=== PATIENT | female | born 1945 | race Caucasian/White ===

== ENCOUNTER 2024-01-16 21:44 | Emergency (ER) | payer MEDICARE, SELFPAY ==
[2024-01-16] VITALS (7 sets, daily range): BP systolic 157–191; BP diastolic 71–132; BMI 26.4
[2024-01-16 22:32] LABS: % Basophils 0.9 % (0-2); % Eosinophils 1.6 % (0-6); % Immature Granulocytes 0.5 % (0-0.5); % Lymphocytes 12.8 % (20.5-51.1); % Neutrophils 76.2 % (42.2-75.2); Absolute Basophils 0.1 10^3/uL (0-0.2); Absolute Eosinophils 0.2 10^3/uL (0-0.7); Absolute Immature Granulocytes 0.1 10^3/uL (0-0.05); Absolute Lymphocytes 1.6 10^3/uL (1.2-3.4); Absolute Neutrophils 9.6 10^3/uL (1.4-6.5); Hematocrit 31.9 % (37.0-47.0); Hemoglobin 10.5 g/dL (12.0-16.0); Mean Corp Hgb Conc. 32.9 g/dL (33.0-37.0); Mean Corpuscular Hgb 29.5 pg (27.0-31.0); Mean Corpuscular Volume 89.6 fL (81.0-99.0); Mean Platelet Volume 9.2 fL (7.4-10.4); Nucleated Red Blood Cells % 0 %; Platelet Count 399 10^3/uL (130-400); Red Blood Cell Count 3.56 10^6/uL (4.20-5.40); White Blood Cell Count 12.6 10^3/uL (4.8-10.8)
[2024-01-16 23:01] LABS: ALT (SGPT) 23 U/L (0-35); AST (SGOT) 37 U/L (14-36); Albumin 4.1 g/dl (3.5-5.0); Alkaline Phosphatase 146 U/L (38-126); Blood Urea Nitrogen 42 mg/dl (7-17); Calcium 11.2 mg/dl (8.4-10.2); Carbon Dioxide 20 mmol/L (22-30); Chloride 104 mmol/L (98-107); Estimated Creatinine Clearance 31 ml/min; Glucose 109 mg/dl (70-99); Magnesium 2.3 mg/dl (1.6-2.3); Potassium 4.9 mmol/L (3.5-5.1); Sodium 139 mmol/L (135-145); Total Bilirubin 0.6 mg/dl (0.2-1.3); Total Protein 7.7 g/dl (6.3-8.2); eGFR 45.76
[2024-01-16] MEDS: NSS 1000 IV (23:12)
--- NOTE | 2024-01-16 23:22 | ED.GENMED ---
Addendum entered and electronically signed by ALEX Araujo 01/20/24 10:32:
Urine cx + E coli spoke with patient at home. She does report she is urinating more frequently but denies any burning with urination. Denies any abdominal pain nausea vomiting back pain. Will DC with Keflex 500 mg twice daily discussed with
patient to follow-up with PCP for repeat UA and reevaluation by PCP. She is to return if any worsening of symptoms.
Original Note:
History of Present Illness
General
Chief Complaint: Heart Rate Problem
Source: patient and records
Exam Limitations: none
Time Seen by Provider: 01/16/24 23:00
Nursing documentation reviewed up to this point in time: agreed with
History of Present Illness
History of Present Illness:
78-year-old female with past medical history of atrial fibrillation on Eliquis, CHF, hypertension, mitral regurgitation status post bioprosthetic mitral valve replacement and tricuspid repair, CKD, asthma who presents to the emergency department for
evaluation of palpitations and tachycardia, fatigue. Patient reports that symptoms have been ongoing for the past 2 or 3 weeks but over the past few days have been much worse she says in the setting of significant stress as well as a flare of her
arthritis in her hand. She says that tonight her monitor was alarming for high heart rate and so she came to the emergency to be evaluated. She says she has had this issue in the past with rapid atrial fibrillation. She denies any chest pain.
Denies any shortness of breath. She denies any dizziness or lightheadedness. She has not noticed any swelling in the legs. She denies any other complaints. In addition to palpitations and tachycardia she says that recently her blood pressures
have been running high. She says yesterday she had a mild headache but no other symptoms. She currently takes metoprolol for her atrial fibrillation and reports compliance without any missed doses or recent adjustments. She is on Eliquis 5 mg
twice daily and reports compliance without missed doses. She follows with Dr. Masterson for cardiology.
Past History
Past History
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
ED Past Surgical History: Cardiac
Patient has exhibited threatening behavior?: No
PSI?: No
Social History
Tobacco: Non-smoker
Alcohol: Daily (1-2 small glasses of wine daily)
Drug: None
Personal:
Living: with family
Employment: Retired
Family History
Family History: Other (Noncontributory)
Review of Systems
Review of Systems
All Other Systems: ROS reviewed and negative except as documented in HPI and ROS
Constitutional: Reports fatigue; Denies fever or chills
Respiratory: Denies cough or trouble breathing
Cardiac: Reports palpitations; Denies chest pain or syncope
ABD/GI: Denies abdominal pain, nausea or vomiting
: Denies flank pain
Musculoskeletal: Denies edema, neck pain or back pain
Neurological: Denies dizzy
Phy Exam
Physical Exam
Physical Exam:
General: Awake, alert, oriented x3; no acute distress
Head: Normocephalic, atraumatic
Eyes: Conjunctiva normal, sclera anicteric
Throat: Airway intact, handling secretions
Neck: Trachea midline, no JVD
Lungs: Clear to auscultation bilaterally, no wheezing, rales, rhonchi
Heart: Tachycardia with irregularly irregular rhythm, no murmurs, gallops, or rubs
Abd: Soft, non distended, nontender
Neuro: No gross deficits
Skin: no rash
Extremities: No edema in extremities, warm and well-perfused
Scores
Heart Failure Risk
Heart Failure Risk Score: Not Applicable
Heart Score for Chest Pain Patients
STEMI patient?: Not applicable
Withdrawal Assessment of Alcohol
Withdrawal Assessment Completed?: Not applicable
Course
Orders/Labs/Results
Orders:
Orders
01/16/24 21:59
Electrocardiogram (*1) Urgent
Reason for Study: Tachycardia
EKG- Treatment ONCE
01/16/24 22:25
Complete Blood Count/With Diff Urgent
Comprehensive Metabolic Panel Urgent
Magnesium Urgent
01/16/24 23:04
0.9% Sodium Chloride 1000 ml [Nss] 1,000 ml IV BOLUS
01/16/24 23:22
Diltiazem HCl [Cardizem] 10 mg IV NOW STA
01/16/24 23:30
CR Chest - 2 Views Urgent
Reason For Exam: weakness, tachycardia
01/16/24 23:44
Urinalysis Reflex To Culture Urgent
Date Specimen was Collected: 01/16/24
Time Specimen was Collected: 23:43
Urine Microscopic Reflex Cult Urgent
Urine Culture Urgent
GENNY Source: U
Specimen Description:
Date Specimen was Collected: 01/16/24
Time Specimen was Collected: 23:43
01/17/24 00:10
Diltiazem HCl [Cardizem] 10 mg IV NOW STA
Abnormal Lab Results
01/16/24 01/16/24
22:25 23:44
WBC 12.6 H 10^3/uL
(4.8-10.8)
RBC 3.56 L 10^6/uL
(4.20-5.40)
Hgb 10.5 L g/dL
(12.0-16.0)
Hct 31.9 L %
(37.0-47.0)
MCHC 32.9 L g/dL
(33.0-37.0)
Abs Immat Gran (auto) 0.1 H 10^3/uL
(0-0.05)
Absolute Neuts (auto) 9.6 H 10^3/uL
(1.4-6.5)
Absolute Monos (auto) 1.0 H 10^3/uL
(0.1-0.6)
Neutrophils % 76.2 H %
(42.2-75.2)
Lymphocytes % 12.8 L %
(20.5-51.1)
Carbon Dioxide 20 L mmol/L
(22-30)
BUN 42 H mg/dl
(7-17)
Creatinine 1.2 H mg/dL
(0.6-1.0)
Glucose 109 H mg/dl
(70-99)
Calcium 11.2 H mg/dl
(8.4-10.2)
AST 37 H U/L
(14-36)
Alkaline Phosphatase 146 H U/L
(38-126)
Ur Occult Blood Reflex 4+ A
(Negative)
Leukocyte Esterase Rfl 1+ A
(Negative)
Urine RBC 3-6 A /HPF
(0-2)
Urine WBC (Reflex) 11-15 A /HPF
(0-5)
Urine Bacteria (Reflex) Few A
(Negative)
01/16/24 22:25
01/16/24 22:25
Vital Signs
Initial and Last Documented VS:
Initial Vital Signs
Temp Pulse Resp BP Pulse Ox
36.7 C 142 18 185/132 98
01/16/24 21:54 01/16/24 21:54 01/16/24 21:54 01/16/24 21:54 01/16/24 21:54
Last Documented Vital Signs
Temp Pulse Resp BP Pulse Ox
36.7 C 80 12 183/85 97
01/16/24 21:54 01/17/24 01:20 01/17/24 01:20 01/17/24 01:20 01/17/24 01:20
MDM/Problems Addressed
Differential Diagnosis Includes:
Anemia, dehydration, electrolyte derangement, symptomatic A-fib, infection including UTI or pneumonia
MDM/Problems Addressed:
78-year-old female presents for evaluation of palpitations and fatigue similar to her normal rapid A-fib symptoms. Symptoms have been progressing over the past couple of weeks but heart rate significantly increasing recently which prompted ER visit
ryleyight. Blood pressures also been running higher than usual. Hypertensive in triage greatly improved by my assessment. She is tachycardic with labile heart rate between 100-140. EKG shows A-fib with RVR. Plan to place an IV send labs including
a CBC and a CMP. Will check urinalysis and chest x-ray. Will provide fluids. Spoke to the patient about her A-fib with RVR�we discussed possibility of ER cardioversion versus rate control; she prefers rate control. Will provide some IV diltiazem
and reassess after the above.
Labs reviewed: CBC shows slight leukocytosis, stable anemia. CMP shows mild NAHOMI�patient given fluids here. Urinalysis appears contaminated�no UTI symptoms, hold off on treatment pending culture. Chest x-ray shows no pneumonia or elaine edema
although somewhat prominent pulmonary vasculature. After IV diltiazem patient's rate has been well-controlled. Heart rate in the 70s. She remains in A-fib. She says symptoms have now resolved with rate control and she now feels very well and is
requesting to be discharged. Will increase dose of metoprolol to help with both blood pressure and heart rate control�she currently takes 50 mg twice daily, increased to 100 mg in the morning and 50 mg in the evening. She will follow-up with
[facility]el[facility]. She feels very comfortable with this. All questions answered.
Chronic conditions affecting care:
A-fib
Acute Exacerbation and/or Progression of Chronic Illness:
Acutely hypertensive
Acute Exacerbation and/or Progression of Chronic Illness: HTN
*Radiology
Radiology exam reviewed: preliminary read by ED provider
*Pulse Oximetry
Patient hypoxic: no
*EKG
Interpreted by ED Provider?: Yes
Heart Rate: 118
Rate: tachycardiac
Rhythm: atrial flutter
[place]: normal axis
Interval: normal interval
QRS Pattern: right bundle branch block
Ischemia: no ischemia
*Critical Care Note
Total Time (30-74mins, 75-104mins- exclusive of procedures): Not Applicable
Data Reviewed
Review of Other/Old Records Reveals: Labs, Records and Discharge Summary
Source: patient and records
Further Testing Considered But Not Given:
Considered ED cardioversion
ED Attending Note
-
Portions of this chart may have been created with voice recognition software.� Occasional wrong word or��sound alike� substitutions may have occurred due to the inherent limitations of voice recognition software.
Discharge Plan
Departure
Patient Disposition: Home (Routine Discharge)
Date of Disposition: 01/17/24
Time of Disposition: 01:32
Patient with high blood pressure during this ER visit?: Yes
Discharge Problem:
Atrial fibrillation with RVR
Instructions: Atrial Fibrillation (DC)
Prescriptions:
New
metoprolol succinate 50 mg tablet extended release 24 hr
50 mg PO BID Qty: 45 0RF
Rx Instructions:
Take 100mg (2 tabs) in AM, Take 50mg (1 tab) in PM
Discontinued
metoprolol succinate 50 mg tablet extended release 24 hr
50 mg PO BID
No Action
cyanocobalamin (vitamin B-12) 1,000 mcg Tablet
1,000 mcg PO DAILY
ascorbic acid (vitamin C) [Vitamin C] 500 mg Tablet
500 mg PO DAILY
cholecalciferol (vitamin D3) [Vitamin D3] 25 mcg (1,000 unit) Tablet
50 mcg PO DAILY
acetaminophen 325 mg Tablet
650 mg PO Q6H PRN (Reason: mild pain/fever>101)
apixaban 5 mg Tablet
5 mg PO BID
furosemide 40 mg tablet
40 mg PO BID@0900,1600
tramadol 50 mg tablet
50 mg PO Q6H PRN (Reason: moderate pain)
sennosides [senna] 8.6 mg Tablet
17.2 mg PO HS
lisinopril 40 mg Tablet
40 mg PO BID
diltiazem HCl 120 mg Capsule,Extended Release 24hr
120 mg PO DAILY Qty: 30 0RF
folic acid 1 mg Tablet
1 mg PO DAILY Qty: 30 0RF
cephalexin 500 mg Capsule
500 mg PO QID Qty: 20 0RF
Referrals:
Jose Masterson MD [Active] - Call in 1-3 days for appt
Sindi Kam MD [Family Provider] -
Activity Restrictions/Additional Instructions:
Thank you for visiting the Emergency Department at [facility].
1. Please schedule a follow up appointment as directed. Call first thing tomorrow morning to make an appointment.
2. If indicated, please take your medications as instructed and indicated on discharge paperwork.
3. If any of your symptoms do not improve, or persist, or become more severe within 6-12 hours, please return to the emergency department for further care.
4. Please return to the emergency department if you develop a headache, neck pain/stiffness, fever greater than 100.4F, chest pain, shortness of breath, persistent nausea, vomiting, slurred speech, difficulty walking, numbness/tingling, weakness,
signs of infection or any other symptoms that are worrisome to you.
Please call [phone] if you have any questions.
Interventions
Interventions:
*Risk Screen - Suicide Last Done: 01/16/24 22:16
*General Assessment Last Done: 01/16/24 22:16
*Neglect/Abuse Screening Last Done: 01/16/24 22:16
ED- Fall Risk Assessment Last Done: 01/16/24 22:16
*ED COVID-19 Vaccine History Last Done: 01/16/24 22:16
ED- Cardiac Assessment Last Done: 01/16/24 22:18
ED- Pulmonary Assessment Last Done: 01/16/24 22:19
Discharge Date and Time
Print Language: CHINESE
[2024-01-16] MEDS: CARDIZEM 10 MG IV (23:24)
[2024-01-16 23:53] LABS: Urine Albumin Negative (Neg - Trace); Urine Bilirubin Negative (Negative); Urine Character Clear (Clear); Urine Color Yellow; Urine Glucose Negative (Negative); Urine Ketone Negative (Negative); Urine Leukocyte 1+ (Negative); Urine Nitrite Negative (Negative); Urine Occult Blood 4+ (Negative); Urine Specific Gravity 1.005 (<1.030); Urine Urobilinogen Negative (Neg - 1+); Urine pH 6.5 (5.0-9.0)
[2024-01-17] VITALS (7 sets, daily range): BP systolic 161–197; BP diastolic 83–111
[2024-01-17 00:06] LABS: Urine Bacteria Few (Negative)
[2024-01-17] MEDS: CARDIZEM 10 MG IV (00:10)
== END 2024-01-17 01:54 | disposition home or self-care (01) ==
LOC: EMR 21:44
PROVIDERS: Student in an Organized Health Care Education/Training Program; EMERGENCY PHYSICIAN Emergency Medicine; FAMILY PHYSICIAN Family Medicine
DX: I48.91 Unspecified atrial fibrillation (principal); R53.83 Other fatigue; I13.0 Hypertensive heart and chronic kidney disease with heart failure and stage 1 through stage 4 chronic kidney disease, or unspecified chronic kidney disease; I50.9 Heart failure, unspecified; N18.9 Chronic kidney disease, unspecified; I34.0 Nonrheumatic mitral (valve) insufficiency; J45.909 Unspecified asthma, uncomplicated; Z79.01 Long term (current) use of anticoagulants
CPT/HCPCS: 99283; 96374; 96376; 96361; 71046; 80053; 81003; 81015; 83735; 85025; 87077; 87086; 87186; 93005

== ENCOUNTER 2024-01-29 10:55 | Inpatient (IN) | payer MEDICARE, SELFPAY ==
[2024-01-29] VITALS (11 sets, daily range): BP systolic 107–144; BP diastolic 56–72; BMI 23.9
--- NOTE | 2024-01-29 11:02 | HPS.HSE ---
Family Physician
-
Family Physician: Sindi Kam MD
Chief Complaint
-
Arrhythmia
History of Present Illness
78 y/o female with severe callie/tricuspid regurgitation s/p bio MVR and TV repair with MAZE and ELIZABETH occlusion device 2021, PAF s/p cardioversions, HFpEF, hypertension, dyslipidemia, RBBB who has had recurrent AFIB and CV was planned for today.
Post-cardioversion, patient developed heart block and will require pacemaker. She is in no distress at the time of my assessment.
Medical History
Past Medical History
Past Medical History: Reports Arrhythmia, CHF, HTN, Hypercholesterolemia and Valvular Disease
Past Surgical History: Reports Cardiac
Social History
Tobacco: Non-smoker
Family History
Family History: Not pertinent
Allergies / Home Medications
Allergies reflects when Allergies were last updated in [facility].
Home Medications with original date entered in [facility]
Allergy/Medication List:
no known allergies
Meds:
apixaban 5 mg PO BID
vitamin C
Vitamin D3
vitamin B-12
diltiazem 240 mg PO daily
metoprolol succinate 100 mg PO daily in AM and 50 mg PO daily in PM
Review of Systems
-
History Source: Patient and Other (and chart)
A 12 point ROS was completed and negative except as noted: Yes
Constitutional: Reports Other (fatigue)
Cardiac: Reports Other (tachycardia)
Physical Exam
Physical Exam
General: Well Developed, Well Nourished and No Apparent Distress
HEENT: NormoCephalic and Anicteric
Respiratory: Clear and Non Labored Respirations
Cardiac: Regular Rhythm and Bradycardia
Skin: Warm and Dry
Neuro: AO x 3
Psych: Calm
Laboratory Results
-
ordered and pending
Data Reviewed
-
Medical Tests (Nuc Med, Echo, EKG etc): Report Reviewed by me (echo 02/07/22: Echo 02/07/22: Normal LV size and function with EF 55-60%. Biatrial enlargement. S/P MV repair with mean gradient 7mm Hg, no MR. Aortic sclerosis without stenosis. )
Lab Data: Other (labs ordered by me)
Impression/Plan
-
IMPRESSION/PLAN:
Advanced heart block:
-this diagnosis is threat to life. BP stable, patient without symptoms currently.
-plan for pacemaker today- Dr. Masterson discussed procedure (risks included) with patient and family
-hold BB and CCB until after pacemaker placed
-hold Eliquis until okay to resume per EP
-update echo
AFIB:
-s/p CV
-resume Eliquis as soon as safe
RBBB:
-follow tele
-plan as above
HTN:
-resume meds after pacemaker
HFpEF:
-chronic, stable
-not on lasix and appears euvolemic
hx Bio MVR and TV repair:
-to update echo
[2024-01-29 11:40] LABS: Hematocrit 36.2 % (37.0-47.0); Hemoglobin 11.6 g/dL (12.0-16.0); Mean Corpuscular Hgb 30.7 pg (27.0-31.0); Mean Corpuscular Volume 95.8 fL (81.0-99.0); Mean Platelet Volume 11.4 fL (7.4-10.4); Platelet Count 196 10^3/uL (130-400); Red Blood Cell Count 3.78 10^6/uL (4.20-5.40); Red Cell Dist. Width 13.4 % (11.5-14.5); White Blood Cell Count 10.9 10^3/uL (4.8-10.8)
--- NOTE | 2024-01-29 12:27 | PTCARENOTE ---
Patient received from shrimp pond laborer, junctional rhythm HR 40, BP 144/61. Denies pain, plan of care reviewed, NPO for PPM today
[2024-01-29 12:47] LABS: Blood Urea Nitrogen 30 mg/dl (7-17); Calcium 11.4 mg/dl (8.4-10.2); Carbon Dioxide 26 mmol/L (22-30); Chloride 107 mmol/L (98-107); Estimated Creatinine Clearance 41 ml/min; Glucose 114 mg/dl (70-99); Sodium 142 mmol/L (135-145); eGFR > 60.00
--- NOTE | 2024-01-29 13:22 | CM ---
Reviewed chart. Met with Mrs. Archuleta to review discharge plans. She states prior to admission she resides alone in a one story home without any steps to enter. She states prior to admission she was independent with ambulation and adls. She states
she does not have any DME in the home. She states she has a prescription plan. The discharge plan is to return home when medically stable.
--- NOTE | 2024-01-29 15:37 | PTCARENOTE ---
Patient wiped down with 2% CHG wipes, NPO, voided pre-procedure. Consents on chart. Patient sent to the track repair laborer in her bed
--- NOTE | 2024-01-29 17:15 | ITS.CL.PACE ---
[employer] - Pacemaker Implant
Pacemaker Implant
Procedure Report:
Date of Procedure: January 29, 2024.
Procedure: Pacemaker Implantation.
Indication: The pacemaker is for the treatment of nonreversible symptomatic bradycardia due to sinus node dysfunction.
Performing physician: Pascual Jara MD, [facility].
Implants:
Pulse Generator: Medtronic; Model# [id number]; Serial# [id number].
RA Lead: Medtronic; Model# 5076-45cm; Serial# [id number].
RV Lead: Medtronic; Model# 3830-69cm; Serial# [id number].
Technique: A time out was performed. The procedure site was identified. The patient was anesthetized by the anesthesia service. Preoperative cefazolin was administered. The patient was prepped and draped in the usual fashion. Local anesthetic was
applied to the left prepectoral subcutaneous tissue. A 3 inch incision was made along the left deltopectoral groove. Dissection was carried to the fascia. The left cephalic vein was easily isolated and proximal and distal control with 2-0 Vicryl
suture. Using a micropuncture needle to access the cephalic vein under direct visualization a glide type wire was advanced into the central circulation. A 7 Fr introducer was placed to allow two 0.35 J wires to be advanced. The leads were introduced
with hemostatic peel away introducer sheaths. The RV lead was placed using utilizing the Ubersense His delivery catheter ([id number]) that was advanced to the left bundle area as confirmed by fluoroscopy in the MAORI and SANDRA projections. The lead tip
was advanced. PVC morphology was reviewed. When a satisfactory location was identified (W pattern observed) the lead was screwed into position with serial turns. Septal engagement was confirmed with gentle torque applied to the guide sheath. After
each series of turns (2-3) unipolar sensed morphology and impedance, and paced morphology of V1 was analyzed. The lead was further advanced until satisfactory morphology and electrical characteristics were confirmed. The RV lead was placed in the
first location evaluated. The long guiding sheath was cut and removed from the RV without change in lead position, impedance, sensing, or capture. The ventricular lead was secured to the pectoralis muscle and fascia with two 0-silk sutures. The
atrial lead was placed in the right atrial appendage. 8 volt pacing from each lead did not capture the diaphragm. The atrial leads was secured to the pectoralis muscle and fascia. A subcutaneous pocket was created with Bovie cautery. Hemostasis was
excellent. The leads were appropriately attached to the device. The pocket was irrigated with antibiotic solution. The device and leads were placed in the pocket. A Ubersense, Tyrx absorbable antibiotic absorbable envelope was used (Ref [id number];
Lot [id number]). The incision was closed in three layers with absorbable suture. Steri-strips and a silver impregnated dressing were placed. Estimated blood loss was less than 50 ml from birsk cephalic vein back bleeding that was controlled with a
figure 8 suture of 2-0 Vicryl. There were no complications. Fluoroscopy: time 3.8 minutes and DAP 1.1 GyCM2. The device was then interrogated after skin closure.
Lead Analysis:
RA lead: P: 2.6 mV; Threshold: 1] V @ 0.4 ms; Impedance: 660 ohms.
RV lead (bipolar): R: 4.6 mV; Threshold: 0.5 V @ 0.4 ms; Impedance: 850 ohms.
Paced QRS characteristics: V1 has QR morphology both unipolar and bipolar configuration. QRS 117 ms in duration, LVAT (stim to peak V5/V6) is 66 ms, and R peak V1 to R peak V6 is 39 ms.
Final Programming: DDDR 60-130 bpm.
Conclusion: Uncomplicated Medtronic pacemaker implant. The RV selectively captures the left bundle conduction system. The pacing system is MRI conditional.
Recommendation: Routine post pacemaker care.
cc: Jose Masterson MD and Sindi Kam MD.
[2024-01-29] MEDS: TYLENOL 650 MG PO (17:36)
[2024-01-29] MEDS: TOPROL XL 50 MG PO (17:36)
[2024-01-29] MEDS: PERCOCET 5/325 1 TABLET PO (19:11)
--- NOTE | 2024-01-29 20:52 | PTCARENOTE ---
Assumed pt care. Walking rounds completed with previous RN. Pt reported 10/25 MARY pain/discomfort - PRN Percocet administered - see MAY. Pt reports alleviation after administration. RA, POX 96% on RA, denies SOB/ARREDONDO. Pt 100% A-V paced on monitor,
heart tones normal, distal pulses palpable B/L. Pt with stand-by assistance when ambulating. Good appetite, voided x 1 without issue. L chest pressure dressing intact. LUE arm immobilizer maintained. PIV present & patent. See MAR. CXR obtained as
ordered. Pt resting in bed. VSS.
[2024-01-29] MEDS: ANCEF 5 IV (21:31)
[2024-01-30 04:10] VITALS: BP 119/65
--- NOTE | 2024-01-30 04:33 | PTCARENOTE ---
Pt reports sleeping well throughout night. VS obtained. EKG performed as ordered. Labs drawn & sent. No other changes.
[2024-01-30 04:41] LABS: Hematocrit 32.2 % (37.0-47.0); Mean Corp Hgb Conc. 31.1 g/dL (33.0-37.0); Mean Corpuscular Hgb 30.7 pg (27.0-31.0); Mean Corpuscular Volume 98.8 fL (81.0-99.0); Mean Platelet Volume 10.1 fL (7.4-10.4); Platelet Count 226 10^3/uL (130-400); Red Blood Cell Count 3.26 10^6/uL (4.20-5.40); Red Cell Dist. Width 13.6 % (11.5-14.5); White Blood Cell Count 10.6 10^3/uL (4.8-10.8)
[2024-01-30 05:07] LABS: Blood Urea Nitrogen 40 mg/dl (7-17); Calcium 10.7 mg/dl (8.4-10.2); Carbon Dioxide 24 mmol/L (22-30); Chloride 107 mmol/L (98-107); Estimated Creatinine Clearance 27 ml/min; Glucose 100 mg/dl (70-99); Potassium 4.8 mmol/L (3.5-5.1); Sodium 143 mmol/L (135-145); eGFR 38.03
[2024-01-30] MEDS: ANCEF 5 IV (07:00)
[2024-01-30 08:22] VITALS: BP 125/52
[2024-01-30] MEDS: VITAMIN B-12 1000 MCG PO (09:01)
[2024-01-30] MEDS: VITAMIN D3 (cholecalciferol) 50 MCG PO (09:01)
[2024-01-30] MEDS: VITAMIN C 500 MG PO (09:02)
[2024-01-30] MEDS: ELIQUIS 5 MG PO (09:02)
[2024-01-30] MEDS: TOPROL XL 100 MG PO (09:37)
[2024-01-30] MEDS: CARDIZEM CD 240 MG PO (09:37)
--- NOTE | 2024-01-30 09:51 | PTCARENOTE ---
Rec'd pt at handoff. AOX3 and pleasant. Tele- V-paced. L chest wall w/ dsg c/d/i. Activity restrictions reviewed w/ pt. Verbalizes understanding. No c/o pain/discomfort at this time. Currently OOB in chair; call pedro w/in reach.
--- NOTE | 2024-01-30 10:07 | W.PN.CARDCBS ---
Today's Communication / Plan
-
stable for d/c home post PPM
Impression / Plan
-
PCP: Sindi Kam MD
CDY: Jose Huerta MD
78 y/o female with severe callie/tricuspid regurgitation s/p bio MVR and TV repair with MAZE and ELIZABETH occlusion device 2021, PAF s/p cardioversions, HFpEF, hypertension, dyslipidemia, RBBB who has had recurrent AFIB and CV was planned for today.
Post-cardioversion, patient developed heart block and will require pacemaker. She is in no distress at the time of my assessment.
IMPRESSION/PLAN:
Advanced heart block after Cardioversion:
-post DC PPM Medtonic 01/29/24
-site stable, tele AV dual paced
-CXR no PTX
-Resume BB and CCB
-Resume Eliquis tonight
-Activity restrictions reviewed
-Incision check CBC 1 week
home today
AFIB:
-s/p CV
-resume Eliquis tonight
RBBB:
-follow tele
-plan as above
HTN:
-resume meds after pacemaker
HFpEF:
-chronic, stable
-not on lasix and appears euvolemic
hx Bio MVR and TV repair:
-Echo EF 55-60%, mild-mod TR, MR valve no MR
Progress Note - Painter Rough
Subjective
Date of Service: January 30, 2024
mild inc pain relief with tylenol, no sob
Objective
Labs:
01/30/24 04:29
01/30/24 04:29
Labs
Hgb 10.0 g/dL (12.0-16.0) L 01/30/24 04:29
Hct 32.2 % (37.0-47.0) L 01/30/24 04:29
Plt Count 226 10^3/uL (130-400) 01/30/24 04:29
Sodium 143 mmol/L (135-145) 01/30/24 04:29
Potassium 4.8 mmol/L (3.5-5.1) 01/30/24 04:29
BUN 40 mg/dl (7-17) H 01/30/24 04:29
Creatinine 1.4 mg/dL (0.6-1.0) H 01/30/24 04:29
Glucose 100 mg/dl (70-99) H 01/30/24 04:29
Vital Signs and I&O:
Vital Signs
Temp Pulse Resp BP Pulse Ox
97.7 F 70 20 125/52 93
01/30/24 08:20 01/30/24 09:00 01/30/24 08:20 01/30/24 08:22 01/30/24 09:31
Vital Signs
Temp Pulse Resp BP Pulse Ox
97.7 F 70 20 125/52 93
01/30/24 08:20 01/30/24 09:00 01/30/24 08:20 01/30/24 08:22 01/30/24 09:31
Intake & Output
01/28/24 01/29/24 01/30/24 01/31/24
06:59 06:59 06:59 06:59
Intake Total 980 / 980
Balance 980 / 980
Physical Exam
Physical Exam
NAD, AOX3
S1, S2, RRR
CTAB, non labored
SNTND Bsx4
L CW Dressing c/d/i no HT
--- NOTE | 2024-01-30 10:11 | W.PN.CD ---
Today's Communication / Plan
-
stable for d/c home today
Impression / Plan
-
PCP: Sindi Kam MD
CDY: Jose Huerta MD
IMPRESSION/PLAN:
Advanced heart block:
- s/p DC Medtronic PPM 01/29/24.
- site is intact with Aquacell dressing intact.
- resume Eliquis, Toprol and Cardizem.
- echo 01/29/24: EF 55-60%, MV replacement with peak/mean gradients 19/4 mmHg, TR repair with peak/mean gradients 5/2 mmHg, mild to mod TR.
AFIB:
- s/p DCCV, continue Eliquis.
- AV paced on tele.
RBBB:
- stable.
HTN:
- stable, back on outpatient meds s/p PPM.
HFpEF:
- chronic, stable.
- not on Lasix and appears euvolemic.
hx Bio MVR and TV repair:
- stable on echo yesterday.
Physical Exam
Vital Signs/Labs
Vital Signs
Temp Pulse Resp BP Pulse Ox
97.7 F 70 20 125/52 93
01/30/24 08:20 01/30/24 09:00 01/30/24 08:20 01/30/24 08:22 01/30/24 09:31
01/29/24 01/30/24 01/31/24
06:59 06:59 06:59
Actual Weight 135 lb
01/30/24 04:29
01/30/24 04:29
Physical Exam
Constitutional: No acute distress
EENT: Anicteric and Moist mucous membranes
Cardiovascular: Rhythm & rate is regular
Respiratory: Respiratory effort normal
GI: Soft, Non tender and Normal bowel sounds
Neuro/Psych: AO x 3
Other: Skin (warm, dry) and Cardiac Device Site (PPM left chest incision site intact)
Data Reviewed
-
Date of Service: January 30, 2024
EKG: Tracing Personally Visualized and interpreted
Echo: Report Reviewed by me
Labs: Labs Reviewed by me
Old Records: Reviewed
--- NOTE | 2024-01-30 10:15 | CM ---
Reviewed chart. Met with Mrs. Archuleta to review discharge plans. She states she is feeling well and maybe able to go home soon. Prior to admission she resides alone in a one stroy home without any steps to enter. Prior to admission she was
independent with ambulation and adls. She does not have any DME in the home. She has a prescription plan. The discharge plan is to return home when medically stable.
--- NOTE | 2024-01-30 10:33 | W.DS.TRANS ---
DC Summary - Upper Cutter Out
-
Discharge Instructions:
Discharge Diagnosis/Procedures Cardioversion, s/p pacemaker implant
Diet Low Cholesterol
Driving Restrictions No driving for 1 week
Bathing Restrictions OK to Shower
Instructions:
Stand-Alone Forms: DC Inst - Implanted Device
Changes to Home Medications: No
Discharge Medications:
DC Medications w/original date entered in [facility]
ascorbic acid (vitamin C) 500 mg tablet (Vitamin C) 500 mg PO DAILY Supplement 12/17/21
cholecalciferol (vitamin D3) 25 mcg (1,000 unit) tablet (Vitamin D3) 50 mcg PO DAILY Supplement 12/17/21
cyanocobalamin (vitamin B-12) 1,000 mcg tablet 1,000 mcg PO DAILY Supplement 12/17/21
apixaban 5 mg tablet 5 mg PO BID Blood clot prevention/tx 01/20/22
diltiazem HCl 240 mg capsule,extended release 24 hr, controlled 240 mg PO DAILY 01/29/24
metoprolol succinate 100 mg tablet,extended release 24 hr 100 mg PO DAILY 01/29/24
metoprolol succinate 50 mg tablet,extended release 24 hr 50 mg PO QPM 01/29/24
Home Medication Changes
none.
Pending Results: No
[2024-01-30 10:37] VITALS: BP 146/68
[2024-01-30] MEDS: FLUAD (65 yr+) 2024-2025 FORMULA 0.5 ML IM (10:39)
--- NOTE | 2024-01-30 11:34 | PTCARENOTE ---
tele and IV removed. Discharge instructions reviewed w/ pt. Verbalizes understanding. Escorted per volunteer escort via wheelchair. Discharged to home.
== END 2024-01-30 11:35 | disposition home or self-care (01) | DRG 243 ==
LOC: IVU 10:55
PROVIDERS: Internal Medicine Cardiovascular Disease; Nurse Practitioner; ADMITTING PHYSICIAN Internal Medicine; FAMILY PHYSICIAN Family Medicine
PROC: 02HK3JZ Insertion of Pacemaker Lead into Right Ventricle, Percutaneous Approach (ICD-10-PCS; 2024-01-29)
PROC: 5A2204Z Restoration of Cardiac Rhythm, Single (ICD-10-PCS; 2024-01-29)
PROC: 02H63JZ Insertion of Pacemaker Lead into Right Atrium, Percutaneous Approach (ICD-10-PCS; 2024-01-29)
PROC: 0JH606Z Insertion of Pacemaker, Dual Chamber into Chest Subcutaneous Tissue and Fascia, Open Approach (ICD-10-PCS; 2024-01-29)
PROC: 3E0102A Introduction of Anti-Infective Envelope into Subcutaneous Tissue, Open Approach (ICD-10-PCS; 2024-01-29)
DX: I49.5 Sick sinus syndrome (principal); I50.32 Chronic diastolic (congestive) heart failure; I48.0 Paroxysmal atrial fibrillation; I08.1 Rheumatic disorders of both mitral and tricuspid valves; I11.0 Hypertensive heart disease with heart failure; E78.00 Pure hypercholesterolemia, unspecified; I45.10 Unspecified right bundle-branch block; Z79.899 Other long term (current) drug therapy; Z79.01 Long term (current) use of anticoagulants; Z95.3 Presence of xenogenic heart valve; Z95.0 Presence of cardiac pacemaker
CPT/HCPCS: 33208; 71045; 80048; 84443; 85027; 90662; 92960; 93005; 93306; C1769; C1785; C1887; C1892; C1898; G0008

== ENCOUNTER 2024-02-08 18:37 | Emergency (ER) | payer MEDICARE, SELFPAY ==
[2024-02-08 18:38] VITALS: BP 174/80
[2024-02-08 19:19] VITALS: BMI 25.1
[2024-02-08 19:24] VITALS: BP 184/66
[2024-02-08 19:39] LABS: % Basophils 0.7 % (0-2); % Eosinophils 2.6 % (0-6); % Immature Granulocytes 0.5 % (0-0.5); % Lymphocytes 15.3 % (20.5-51.1); % Monocytes 10.2 % (1.7-9.3); % Neutrophils 70.7 % (42.2-75.2); Absolute Basophils 0.1 10^3/uL (0-0.2); Absolute Eosinophils 0.3 10^3/uL (0-0.7); Absolute Immature Granulocytes 0.1 10^3/uL (0-0.05); Absolute Lymphocytes 1.7 10^3/uL (1.2-3.4); Absolute Monocytes 1.2 10^3/uL (0.1-0.6); Hematocrit 34.4 % (37.0-47.0); Hemoglobin 10.7 g/dL (12.0-16.0); Mean Corp Hgb Conc. 31.1 g/dL (33.0-37.0); Mean Corpuscular Hgb 30.2 pg (27.0-31.0); Mean Corpuscular Volume 97.2 fL (81.0-99.0); Mean Platelet Volume 9.7 fL (7.4-10.4); Nucleated Red Blood Cells % 0 %; Platelet Count 277 10^3/uL (130-400); Red Blood Cell Count 3.54 10^6/uL (4.20-5.40); White Blood Cell Count 11.3 10^3/uL (4.8-10.8)
--- NOTE | 2024-02-08 19:45 | ED.GENMED ---
History of Present Illness
<Berta Price PA-C - Last Filed: 02/08/24 22:48>
General
Chief Complaint: Dizziness
Source: patient
Exam Limitations: none
Time Seen by Provider: 02/08/24 19:45
Nursing documentation reviewed up to this point in time: agreed with
History of Present Illness
History of Present Illness:
78-year-old female with past medical history of CHF, A-fib on Eliquis, hypertension, hyperlipidemia, pacemaker in place, presents emergency department today with concerns of dizziness and feeling of disequilibrium that started this morning. Patient
states that she has never felt anything like this before. She denies palpitations, chest pain, shortness of breath. She denies syncopal episodes. She notes that this sensation is worse with walking around. Patient states that she has not felt
off balance or had any falls. Of note, patient recently had a pacemaker put in place since discharge a week ago for sick sinus syndrome, and has recently had different changes made to her medications. She is recently increased her metoprolol and
recently started taking diltiazem again. She denies any fevers or chills. She follows with Dr. Masterson and had a follow-up appointment with him yesterday.
Past History
<Berta Price PA-C - Last Filed: 02/08/24 22:48>
Past History
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
ED Past Surgical History: Cardiac
Patient has exhibited threatening behavior?: No
PSI?: No
Social History
Tobacco: Non-smoker
Alcohol: Daily (1-2 small glasses of wine daily)
Drug: None
Personal:
Living: with family
Employment: Retired
Family History
Family History: Other (Noncontributory)
Review of Systems
<Berta Price PA-C - Last Filed: 02/08/24 22:48>
Review of Systems
All Other Systems: ROS reviewed and negative except as documented in HPI and ROS
Phy Exam
<Berta Price PA-C - Last Filed: 02/08/24 22:48>
Physical Exam
Physical Exam:
General: Patient is well appearing and in no acute distress; non-toxic
Skin: Warm and dry, no rashes or lesions
Head: Normocephalic, atraumatic
Eyes: Sclera non-icteric. EOMs intact. PERRLA
Cardiac: Regular rate and rhythm, systolic murmur noted
Peripheral Vascular: No lower extremity swelling or edema
Pulm: Normal respiratory effort, no wheezes, rales, rhonchi
Musculoskeletal: 5 out of 5 strength in bilateral upper and lower extremities.
Neuro: CN II-XII intact, no focal neurologic deficits. Finger-nose, [id number] testing intact.
Psychiatric: Appropriate mood and affect.
Course
<Berta Price PA-C - Last Filed: 02/08/24 22:48>
Orders/Labs/Results
Orders:
Orders
02/08/24 18:43
Electrocardiogram (*1) Urgent
Reason for Study: Vertigo / Dizzy
EKG- Treatment ONCE
02/08/24 19:34
CMP [Comprehensive Metabolic Panel] Urgent
Complete Blood Count/With Diff Urgent
02/08/24 19:50
Interrogate Pacemaker- Treatment ONCE
02/08/24 20:12
CT Head W/o Iv Contrast Urgent
Comment:
Reason For Exam: dizziness, disequilibrium
Abnormal Lab Results
02/08/24
19:34
WBC 11.3 H 10^3/uL
(4.8-10.8)
RBC 3.54 L 10^6/uL
(4.20-5.40)
Hgb 10.7 L g/dL
(12.0-16.0)
Hct 34.4 L %
(37.0-47.0)
MCHC 31.1 L g/dL
(33.0-37.0)
Abs Immat Gran (auto) 0.1 H 10^3/uL
(0-0.05)
Absolute Neuts (auto) 8.0 H 10^3/uL
(1.4-6.5)
Absolute Monos (auto) 1.2 H 10^3/uL
(0.1-0.6)
Lymphocytes % 15.3 L %
(20.5-51.1)
Monocytes % 10.2 H %
(1.7-9.3)
BUN 33 H mg/dl
(7-17)
Glucose 105 H mg/dl
(70-99)
Calcium 11.5 H mg/dl
(8.4-10.2)
Alkaline Phosphatase 156 H U/L
(38-126)
02/08/24 19:34
02/08/24 19:34
Vital Signs
Initial and Last Documented VS:
Initial Vital Signs
Temp Pulse Resp BP Pulse Ox
97.7 F 65 16 174/80 98
02/08/24 18:38 02/08/24 18:38 02/08/24 18:38 02/08/24 18:38 02/08/24 18:38
Last Documented Vital Signs
Temp Pulse Resp BP Pulse Ox
97.7 F 65 20 178/71 98
02/08/24 18:38 02/08/24 21:32 02/08/24 21:00 02/08/24 21:32 02/08/24 21:32
<Tal Silva MD - Last Filed: 02/08/24 21:57>
Orders/Labs/Results
Orders:
Orders
02/08/24 18:43
Electrocardiogram (*1) Urgent
Reason for Study: Vertigo / Dizzy
EKG- Treatment ONCE
02/08/24 19:34
CMP [Comprehensive Metabolic Panel] Urgent
Complete Blood Count/With Diff Urgent
02/08/24 19:50
Interrogate Pacemaker- Treatment ONCE
02/08/24 20:12
CT Head W/o Iv Contrast Urgent
Comment:
Reason For Exam: dizziness, disequilibrium
Abnormal Lab Results
02/08/24
19:34
WBC 11.3 H 10^3/uL
(4.8-10.8)
RBC 3.54 L 10^6/uL
(4.20-5.40)
Hgb 10.7 L g/dL
(12.0-16.0)
Hct 34.4 L %
(37.0-47.0)
MCHC 31.1 L g/dL
(33.0-37.0)
Abs Immat Gran (auto) 0.1 H 10^3/uL
(0-0.05)
Absolute Neuts (auto) 8.0 H 10^3/uL
(1.4-6.5)
Absolute Monos (auto) 1.2 H 10^3/uL
(0.1-0.6)
Lymphocytes % 15.3 L %
(20.5-51.1)
Monocytes % 10.2 H %
(1.7-9.3)
BUN 33 H mg/dl
(7-17)
Glucose 105 H mg/dl
(70-99)
Calcium 11.5 H mg/dl
(8.4-10.2)
Alkaline Phosphatase 156 H U/L
(38-126)
02/08/24 19:34
02/08/24 19:34
Vital Signs
Initial and Last Documented VS:
Initial Vital Signs
Temp Pulse Resp BP Pulse Ox
97.7 F 65 16 174/80 98
02/08/24 18:38 02/08/24 18:38 02/08/24 18:38 02/08/24 18:38 02/08/24 18:38
Last Documented Vital Signs
Temp Pulse Resp BP Pulse Ox
97.7 F 65 20 178/71 98
02/08/24 18:38 02/08/24 21:32 02/08/24 21:00 02/08/24 21:32 02/08/24 21:32
<Berta Price PA-C - Last Filed: 02/08/24 22:48>
MDM/Problems Addressed
Differential Diagnosis Includes:
Differentials include vasovagal presyncope, polypharmacy, posterior circulation stroke, arrhythmia
MDM/Problems Addressed:
78-year-old female presents emergency department today with concerns of dizziness that started this morning. Patient states that she noticed that shortly after awakening and states that as the day progressed, the symptoms started to improve.
Patient denies head or neck trauma. Of note, patient notes changes to her medications recently. On sickle exam, she is well-appearing, she is nonfocal neurologic exam. Patient CBC and CMP is unremarkable, she did get a CT of the head which showed
no concerning findings for bleed, her EKG did not show any concern findings, [employer] pacer report did not show any arrhythmia or new episodes. On reassessment, patient symptoms have resolved. Did advise patient to return to original metoprolol
dose. Patient stable for discharge. Return precautions discussed.
Chronic conditions affecting care:
CHF, hypertension, hyperlipidemia, CT
<Berta Price PA-C - Last Filed: 02/08/24 22:48>
*Pulse Oximetry
Patient hypoxic: no
*Critical Care Note
Total Time (30-74mins, 75-104mins- exclusive of procedures): Not Applicable
Data Reviewed
Review of Other/Old Records Reveals: Records (Reviewed previous discharge summary from 01/30/2024, patient seen for sick sinus syndrome, had pacemaker)
Source: patient and records
<Berta Price PA-C - Last Filed: 02/08/24 22:48>
Patient Management
Escalation/DeEscalation of care consider admission/obs:
Admit not indicated, patient stable for discharge, case reviewed with my attending
ED Attending Note
<Berta Price PA-C - Last Filed: 02/08/24 22:48>
-
Portions of this chart may have been created with voice recognition software.� Occasional wrong word or��sound alike� substitutions may have occurred due to the inherent limitations of voice recognition software.
<Tal Silva MD - Last Filed: 02/08/24 21:57>
ED Attending Note
Patient seen and examined by attending physician: Yes
I performed the substantive portion of visit, reviewed & personally made and approve the management plan that is documented in note by myself or JUVENAL.: Yes
ED Attending Note:
78-year-old female complaining of some lightheadedness today. No true disequilibrium no vertigo. No headache no chest pain or shortness of breath. Patient recently in the hospital and was discharged on a higher dose of metoprolol. Her Cardizem
had been stopped. She saw her junior programmer analyst this week who recommended restarting Cardizem and going back to her metoprolol dose.
On exam patient is nontoxic in no distress. Warm and dry. Perfusing well. Lungs clear and equal. Heart regular rate and rhythm. Pacemaker in place. Abdomen soft and nontender. Nonfocal. [id number] normal. No drift. Speech normal.
Cranial nerves II through XII intact. Good lower extremity strength.
All testing is stable. Pacemaker interrogation within normal limits. Head CT stable. Labs stable. Highly doubt central neurologic issue. Probably medication related. Patient feels comfortable and ambulating well. Currently asymptomatic. Feel
can she can be discharged to decrease her metoprolol dose back to baseline and follow-up.
Discharge Plan
Departure
Patient Disposition: Home (Routine Discharge)
Date of Disposition: 02/08/24
Time of Disposition: 21:33
Patient with high blood pressure during this ER visit?: Yes
Condition: Good
Discharge Problem:
Dizziness
Instructions: Dizziness, BLOOD PRESSURE
Prescriptions:
No Action
cyanocobalamin (vitamin B-12) 1,000 mcg Tablet
1,000 mcg PO DAILY
ascorbic acid (vitamin C) [Vitamin C] 500 mg Tablet
500 mg PO DAILY
cholecalciferol (vitamin D3) [Vitamin D3] 25 mcg (1,000 unit) Tablet
50 mcg PO DAILY
apixaban 5 mg Tablet
5 mg PO BID
diltiazem HCl 240 mg Capsule,Ext.Rel 24h Degradable
240 mg PO DAILY
metoprolol succinate 50 mg Tablet Extended Release 24 Hr
50 mg PO QPM
metoprolol succinate 100 mg Tablet Extended Release 24 Hr
100 mg PO DAILY
Activity Restrictions/Additional Instructions:
Your pacemaker interrogation did not show any recent dysrthymias or events.
Please resume your original dosing of metoprolol as directed by Dr. Masterson.
Please follow up with your PCP.
Please return to the emergency department should you develop a return or acute worsening of your symptoms, chest pain, shortness of breath, difficulty ambulating, weakness on one side of the body versus the other, abnormal gait, facial droop,
trouble speaking, double vision, vision loss, headaches, or any other signs or symptoms worrisome to you.
Interventions
Interventions:
*Risk Screen - Suicide Last Done: 02/08/24 18:38
*General Assessment Last Done: 02/08/24 18:38
*Neglect/Abuse Screening Last Done: 02/08/24 18:38
*ED COVID-19 Vaccine History Last Done: 02/08/24 18:38
*Nursing Disposition Last Done: 02/08/24 22:04
ED- Neurological Assessment Last Done: 02/08/24 19:20
ED- Cardiac Assessment Last Done: 02/08/24 19:20
Discharge Date and Time
Discharge Date/Time: 02/08/24 22:04
Print Language: WELSH
[2024-02-08 19:57] LABS: ALT (SGPT) 13 U/L (0-35); AST (SGOT) 31 U/L (14-36); Albumin 4.6 g/dl (3.5-5.0); Alkaline Phosphatase 156 U/L (38-126); Blood Urea Nitrogen 33 mg/dl (7-17); Calcium 11.5 mg/dl (8.4-10.2); Carbon Dioxide 25 mmol/L (22-30); Chloride 106 mmol/L (98-107); Estimated Creatinine Clearance 39 ml/min; Glucose 105 mg/dl (70-99); Sodium 144 mmol/L (135-145); Total Bilirubin 0.5 mg/dl (0.2-1.3); Total Protein 8.2 g/dl (6.3-8.2); eGFR 56.95
[2024-02-08 20:14] VITALS: BP 172/75
[2024-02-08 21:00] VITALS: BP 176/74
[2024-02-08 21:32] VITALS: BP 178/71
== END 2024-02-08 22:04 | disposition home or self-care (01) ==
LOC: EMR 18:37
PROVIDERS: EMERGENCY PHYSICIAN Emergency Medicine; FAMILY PHYSICIAN Family Medicine
DX: R42 Dizziness and giddiness (principal); I11.0 Hypertensive heart disease with heart failure; I50.9 Heart failure, unspecified; Z79.01 Long term (current) use of anticoagulants; Z95.0 Presence of cardiac pacemaker
CPT/HCPCS: 99285; 70450; 80053; 85025; 93005